=== PATIENT | male | born 1950 ===

== ENCOUNTER 2019-02-22 07:14 | Observation (INO) | payer OTHER ==
[2019-02-22 07:21] VITALS: BMI 25.0
[2019-02-22] MEDS ORDERED: Sodium Chloride 0.9% 1,000 ML IV STA (07:51)
--- NOTE | 2019-02-22 07:53 | C.PDOC ---
History Of Present Illness 68 y/o male pt with no PMHx presents to the ER c/o syncope x4 days ago. Pt reports he was going to the bathroom when he suddenly felt light headed and loss consciousness. Pt went to the PMD the same day but left without being seen due to the office being busy. Associated sx includes cough, body ache, chest congestion and subjective fever. Pt denies SOB, vomiting, back pain, neck pain, or prior history of syncope. Time Seen by Provider: 02/22/19 07:40 Chief Complaint (Nursing): Syncope History Per: Patient History/Exam Limitations: no limitations Onset/Duration Of Symptoms: Days (x4 days ago ) Activity At Onset Of Symptoms: Walking Associated Symptoms Preceding Syncopal Episode: Lightheadedness Past Medical History Reviewed: Historical Data, Nursing Documentation, Vital Signs Vital Signs: Last Vital Signs Temp 98.5 F 02/22/19 07:22 Pulse 91 H 02/22/19 07:22 Resp 16 02/22/19 07:22 BP 161/95 H 02/22/19 07:22 Pulse Ox 100 02/22/19 07:22 Family History: States: No Known Family Hx - Social History Hx Alcohol Use: No Hx Substance Use: No - Immunization History Hx Tetanus Toxoid Vaccination: No Hx Influenza Vaccination: No Hx Pneumococcal Vaccination: No Review Of Systems Except As Marked, All Systems Reviewed And Found Negative. Respiratory: Negative for: Shortness of Breath Gastrointestinal: Negative for: Vomiting Physical Exam - Physical Exam Additional Physical Exam Comments: Constitutional: No acute distress. Head: Normocephalic. Atraumatic. Eyes: PERRL. ENT: Moist mucous membranes. Neck: Supple. Cardiovascular: Regular rate. Radial pulse 2+ bilaterally. Chest: No tenderness. Respiratory: Clear to auscultation bilaterally. GI: Soft. Nontender. Nondistended. Back: No CVA tenderness. Musculoskeletal: No tenderness or swelling of extremities. Skin: No rash. Neurologic: Alert, no focal deficit. ED Course And Treatment - Laboratory Results Result Diagrams: 02/22/19 08:15 02/22/19 08:15 O2 Sat by Pulse Oximetry: 100 (RA) Pulse Ox Interpretation: Normal Medical Decision Making Medical Decision Making: Impression: 68 y/o male pt presents with syncope Plans: -- chem labs -- blood work -- CXR -- IV fluids -- Toradol EKG normal sinus: 80 bpm Large voltages, no ST elevations CXR IMPRESSION: Right middle lobe pneumonia. Follow-up after medical management is recommended to ensure complete resolution. The final report is tagged to the PA review folder. Patient initiated on antibiotics. Dr. Tomas accepts patient to hospitalist service. Disposition - Disposition Disposition: HOSPITALIZED Disposition Time: 10:47 Condition: FAIR Forms: [employer] (Lithuanian) - POA Core Measure Indicators: Pneumonia - Clinical Impression Clinical Impression: Syncope, Pneumonia - Scribe Statement The provider has reviewed the documentation as recorded by the Luis Manuel Monreal Do Provider Attestation: All medical record entries made by the Scribe were at my direction and personally dictated by me. I have reviewed the chart and agree that the record accurately reflects my personal performance of the history, physical exam, medical decision making, and the department course for this patient. I have also personally directed, reviewed, and agree with the discharge instructions and disposition.
[2019-02-22] MEDS ORDERED: Sodium Chloride 0.9% 1,000 ML ONE (08:02)
[2019-02-22 08:21] LABS: BASO % 0.3 % (0.0-2.0); EOS % 0.6 % (0.0-4.0); HEMOGLOBIN 11.2 g/dL (12.0-18.0); LYMPH # 1.4 K/uL (1.0-4.3); LYMPH % 18.1 % (20.0-40.0); MEAN CORPUSCULAR HEMOGLOBIN 29.5 pg (27.0-31.0); MEAN CORPUSCULAR HGB CONC 34.2 g/dL (33.0-37.0); MONO # 0.7 K/uL (0.0-0.8); MONO % 9.1 % (0.0-10.0); NEUT # 5.5 K/uL (1.8-7.0); NEUT % 71.9 % (50.0-75.0); RBC 3.81 Mil/uL (4.40-5.90); RED CELL DISTRIBUTION WIDTH 14.5 % (11.5-14.5); WHITE BLOOD COUNT 7.6 K/uL (4.8-10.8)
[2019-02-22 08:33] LABS: URINE BACTERIA RARE (<OCC); URINE BILIRUBIN NEGATIVE (NEGATIVE); URINE BLOOD NEGATIVE (NEGATIVE); URINE CLARITY Hazy (Clear); URINE COLOR Amber (YELLOW); URINE GLUCOSE (UA) NORMAL (Normal); URINE LEUKOCYTE ESTERASE NEG Leu/uL (Negative); URINE PROTEIN 2+ mg/dL (NEGATIVE)
[2019-02-22 08:36] LABS: ALB/GLOB RATIO 1.2 (1.0-2.1); ALBUMIN 4.1 g/dL (3.5-5.0); ALT/SGPT 41 U/L (21-72); AST/SGOT 56 U/L (17-59); BLOOD UREA NITROGEN 15 mg/dL (9-20); CALCIUM 9.1 mg/dl (8.6-10.4); GFR NON-AFRICAN AMERICAN > 60
[2019-02-22 08:46] LABS: CK-MB 0.47 ng/mL (0.0-3.38)
--- NOTE | 2019-02-22 10:39 | RAD ---
Date of service: 02/22/2019 HISTORY: Cough COMPARISON: No prior. TECHNIQUE: Chest PA and lateral FINDINGS: LINES AND TUBES: None. LUNG AND PLEURA: The lungs are well inflated. There is confluent airspace disease in the right middle lobe. No pleural effusion or pneumothorax. HEART AND MEDIASTINUM: The heart is not enlarged. No aortic atherosclerotic calcifications present. The hilar and mediastinal contours are within normal limits. SKELETAL STRUCTURES: The bony structures are within normal limits for the patient's age. VISUALIZED UPPER ABDOMEN: Normal. OTHER FINDINGS: None. IMPRESSION: Right middle lobe pneumonia. Follow-up after medical management is recommended to ensure complete resolution. The final report is tagged to the PA review folder.
[2019-02-22] MEDS ORDERED: Azithromycin 500 MG in Sodium Chloride 0.9% 250 ML IVPB STA (10:40)
[2019-02-22] MEDS ORDERED: Azithromycin 500mg/250ML NS 500 MG/250 ML BAG IVPB ONE (11:20)
[2019-02-22 11:33] VITALS: RESP 20
--- NOTE | 2019-02-22 13:54 | CP.PCM.HP ---
<Allison Simon P - Last Filed: 02/22/19 17:36> History of Present Illness - History of Present Illness History of Present Illness: H&P for Dr. Dee. HPI: 68 year old male with PMHx of HTN presents to ED complaining of cough with yellow sputum for one week. Patient also feels generalized weakness, subjective fever, chills, and body aches. Patient has not tried anything at home for the symptoms. Patient states he had a syncopal episode 4 days ago. He reportedly felt lightheaded as was urinating in the bathroom and fell backwards, hitting the back of his head on the ground. Patient states his nephew witnessed the episode and told him it lasted 2 minutes. Patient denies loss of bowel, convulsions, tongue biting and confusion afterward. Patient attempted to see his PMD later that day, however the wait was too long and he had to leave. Patient denies nausea, vomiting, diaphoresis, shortness of breath, room spinning sensation, headache, laceration, focal weakness, numbness and slurred speech. PMHx: HTN PSHx: none Meds: Norvasc 10mg QD, Losartan-HCTX 100-25mg QD- As per [facility] a 3 month supply for both medications were picked up on 11/2018, however patient states he only takes one of the medications and does not know the name Allergies: denies FamHx: denies SocHx: denies tobacco alcohol and illicit drugs, lives with his sister PMD: Dr. Gutierrez Proxy: Mustapha- nephew, contact info unknown to patient Review of Systems: -Gen: + fever, + chills, No headache, No lethargy, + weakness. -HEENT: No dizziness, No change in vision, No change in hearing, No sore throat, No dysphagia, No nasal congestion, No mucous. -Cardio: No chest pain, No palpitations, No lower extremity edema, No orthopnea. -Resp: + cough, No dyspnea, No hemoptysis, No wheezing, No pain on inspiration. -GI: No abdominal pain, No nausea/vomiting, No diarrhea/constipation, No hematochezia, No hematemesis. -: No dysuria, No urinary freq, No incontinence, No hematuria, No change in urinary stream. -MSK: No back pain, No muscle weakness, No radiating pain. -Skin: No itching, No rash, No lesions. -Neuro: + lightheadedness, No confusion, No numbness, No tingling, No focal weakness, No radicular pain, + syncope. -Psych: No anxiety, No depression, No H/I, No S/I, No hallucinations. Present on Admission - Present on Admission Any Indicators Present on Admission: No Past Patient History - Past Social History Smoking Status: Never Smoked - PSYCHIATRIC Hx Substance Use: No - SURGICAL HISTORY Hx Surgeries: No - ANESTHESIA Hx Anesthesia: No Meds Home Medications: Home Medication List Medication Instructions Recorded Confirmed Type Lactobacillus Acidophilus 1 cap PO BID #60 cap 02/23/19 Rx [Lactobacillus] Losartan/Hydrochlorothiazide 1 each PO DAILY #30 tablet 02/23/19 Rx [Losartan-Hctz 100-25 mg Tab] Moxifloxacin [Avelox] 400 mg PO DAILY #7 tab 02/23/19 Rx amLODIPine [Norvasc] 10 mg PO DAILY #30 tab 02/23/19 Rx Allergies/Adverse Reactions: Allergies Allergy/AdvReac Type Severity Reaction Status Date / Time No Known Allergies Allergy Verified 02/22/19 07:21 Physical Exam - Constitutional Appears: Non-toxic, No Acute Distress - Head Exam Head Exam: ATRAUMATIC, NORMOCEPHALIC Additional comments: No contusion, laceration or hematoma noted - Eye Exam Eye Exam: EOMI, Normal appearance, PERRL - ENT Exam ENT Exam: Mucous Membranes Moist, Normal Exam - Neck Exam Neck exam: Positive for: Full Rom, Normal Inspection. Negative for: Lymphadenopathy - Respiratory Exam Respiratory Exam: Clear to Auscultation Bilateral, NORMAL BREATHING PATTERN. absent: Accessory Muscle Use, Chest Wall Tenderness, Decreased Breath Sounds, Rales, Rhonchi, Wheezes, Respiratory Distress - Cardiovascular Exam Cardiovascular Exam: REGULAR RHYTHM, RRR, +S1, +S2. absent: JVD, Systolic Murm ur - GI/Abdominal Exam GI & Abdominal Exam: Normal Bowel Sounds, Soft. absent: Distended, Firm, Guarding, Rebound, Rigid, Tenderness - Extremities Exam Extremities exam: Positive for: full ROM, normal capillary refill, normal inspection, pedal pulses present. Negative for: calf tenderness, pedal edema, tenderness - Neurological Exam Neurological exam: Alert, CN II-XII Intact, Oriented x3 Additional comments: Muscle strength 5/5. Sensation intact. - Psychiatric Exam Psychiatric exam: Normal Affect, Normal Mood - Skin Skin Exam: Dry, Normal Color, Warm Results - Vital Signs Recent Vital Signs: Last Vital Signs Temp 98.3 F 02/22/19 11:40 Pulse 67 02/22/19 11:40 Resp 20 02/22/19 11:40 BP 173/93 H 02/22/19 11:40 Pulse Ox 97 02/22/19 11:40 - Labs Result Diagrams: 02/22/19 08:15 02/22/19 08:15 Labs: Laboratory Results - last 24 hr 02/22/19 02/22/19 02/22/19 08:15 08:15 08:15 WBC 7.6 RBC 3.81 L Hgb 11.2 L Hct 32.7 L MCV 86.0 MCH 29.5 MCHC 34.2 RDW 14.5 Plt Count 322 MPV 7.0 L Neut % (Auto) 71.9 Lymph % (Auto) 18.1 L Clark % (Auto) 9.1 Eos % (Auto) 0.6 Baso % (Auto) 0.3 Neut # (Auto) 5.5 Lymph # (Auto) 1.4 Clark # (Auto) 0.7 Eos # (Auto) 0.0 Baso # (Auto) 0.0 Sodium 136 Potassium 3.8 Chloride 101 Carbon Dioxide 25 Anion Gap 14 BUN 15 Creatinine 1.1 Est GFR ( Amer) > 60 Est GFR (Non-Af Amer) > 60 Random Glucose 121 H Calcium 9.1 Phosphorus 3.8 Magnesium 2.1 Total Bilirubin 0.9 AST 56 ALT 41 Alkaline Phosphatase 189 H Total Creatine Kinase 373 H CK-MB (Mass) 0.47 Troponin I 0.0120 Total Protein 7.5 Albumin 4.1 Globulin 3.4 Albumin/Globulin Ratio 1.2 Urine Color Urine Clarity Urine pH Ur Specific Kindred Urine Protein Urine Glucose (UA) Urine Ketones Urine Blood Urine Nitrate Urine Bilirubin Urine Urobilinogen Ur Leukocyte Esterase Urine WBC (Auto) Urine RBC (Auto) Urine Bacteria Influenza Typ A,B (EIA) Negative for flu a/b 02/22/19 08:15 WBC RBC Hgb Hct MCV MCH MCHC RDW Plt Count MPV Neut % (Auto) Lymph % (Auto) Clark % (Auto) Eos % (Auto) Baso % (Auto) Neut # (Auto) Lymph # (Auto) Clark # (Auto) Eos # (Auto) Baso # (Auto) Sodium Potassium Chloride Carbon Dioxide Anion Gap BUN Creatinine Est GFR ( Amer) Est GFR (Non-Af Amer) Random Glucose Calcium Phosphorus Magnesium Total Bilirubin AST ALT Alkaline Phosphatase Total Creatine Kinase CK-MB (Mass) Troponin I Total Protein Albumin Globulin Albumin/Globulin Ratio Urine Color Agnieszka Urine Clarity Hazy Urine pH 5.0 Ur Specific Kindred 1.029 Urine Protein 2+ H Urine Glucose (UA) Normal Urine Ketones Negative Urine Blood Negative Urine Nitrate Negative Urine Bilirubin Negative Urine Urobilinogen 4.0 Ur Leukocyte Esterase Neg Urine WBC (Auto) 4 Urine RBC (Auto) 1 Urine Bacteria Rare Influenza Typ A,B (EIA) Assessment & Plan - Assessment and Plan (Free Text) Plan: 68 year old male with PMHx of HTN admitted for PNA and syncope Right Middle Lobe Pneumonia CXR: RML PNA Azithromycin 500mg and ceftriaxone 1gm given in ED Azithromycin 250mg PO daily Ceftriaxone 1gm IVPB once daily Robitussin DM 10ml PO Q4H PRN Duoneb Q6H Acetaminophen 650mg PO Q6H PRN fever Flu negative F/u blood cx Syncopal episode with head trauma Likely vasovagal CT Head: No acute intracranial hemorrhage. 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 See full report. EKG: NSR @78bpm with voltage criteria for LVH Troponin negative x1 Hx of HTN Amlodipine 10mg PO daily Losartan 100mg PO daily HCTZ 25 mg PO dialy Monitor BP PPx Heparin 5000u SC Q8H SCDs GI ppx not indicated HHD Case discussed with Dr. uLiz Simon, PGY-1 <Jo Dee - Last Filed: 02/23/19 17:38> Results - Vital Signs Recent Vital Signs: Last Vital Signs Temp 97.2 F L 02/23/19 15:00 Pulse 81 02/23/19 15:00 Resp 20 02/23/19 15:00 BP 131/84 02/23/19 15:00 Pulse Ox 98 02/23/19 15:00 - Labs Result Diagrams: 02/23/19 07:00 02/23/19 07:00 Labs: Laboratory Results - last 24 hr 02/23/19 02/23/19 07:00 07:00 WBC 5.2 RBC 3.80 L Hgb 11.1 L Hct 32.6 L MCV 85.9 MCH 29.3 MCHC 34.1 RDW 14.7 H Plt Count 368 MPV 7.1 L Neut % (Auto) 61.1 Lymph % (Auto) 26.1 Clark % (Auto) 7.9 Eos % (Auto) 4.5 H Baso % (Auto) 0.4 Neut # (Auto) 3.2 Lymph # (Auto) 1.4 Clark # (Auto) 0.4 Eos # (Auto) 0.2 Baso # (Auto) 0.0 Sodium 135 Potassium 3.7 Chloride 100 Carbon Dioxide 26 Anion Gap 13 BUN 12 Creatinine 1.1 Est GFR ( Amer) > 60 Est GFR (Non-Af Amer) > 60 Random Glucose 105 Calcium 8.9 Total Bilirubin 0.5 AST 36 ALT 27 Alkaline Phosphatase 165 H Total Protein 7.0 Albumin 3.8 Globulin 3.2 Albumin/Globulin Ratio 1.2 Attending/Attestation - Attestation I have personally seen and examined this patient.: Yes I have fully participated in the care of the patient.: Yes I have reviewed all pertinent clinical information: Yes Notes (Text): seen and examined with the resident 1.syncope 2.Right middle lobe pneumonia Ct head shows chronic infarct ,we will continue ceftriaxone with zithromax Patient was asked to have a chest x ray after 4weeks of treatment
--- NOTE | 2019-02-22 16:13 | CT ---
Date of service: 02/22/2019 PROCEDURE: CT HEAD WITHOUT CONTRAST. HISTORY: Head trauma COMPARISON: Prior study available comparison. TECHNIQUE: Axial computed tomography images were obtained through the head/brain without intravenous contrast. Radiation dose: Total exam DLP = 1064.57 mGy-cm. This CT exam was performed using one or more of the following dose reduction techniques: Automated exposure control, adjustment of the mA and/or kV according to patient size, and/or use of iterative reconstruction technique. FINDINGS: HEMORRHAGE: No acute parenchymal, subarachnoid or extra-axial hemorrhage. BRAIN: Moderate chronic periventricular white matter ischemic changes seen extending peripherally into the deep and subcortical white matter both cerebral hemispheres. There are also scattered chronic bilateral basal nuclei lacunar type infarcts. Note that the possibility of a small hyperacute infarct cannot be excluded based on this exam. VENTRICLES: No obstructive hydrocephalus. CALVARIUM: Calvarium intact. PARANASAL SINUSES: Minimal mucosal thickening seen within a few ethmoid air cells. Old right sided nasal bone fracture deformity suspected. MASTOID AIR CELLS: Unremarkable as visualized. No inflammatory changes. OTHER FINDINGS: None. IMPRESSION: No acute intracranial hemorrhage. Moderate chronic white matter ischemic changes with multiple more discrete chronic appearing bilateral basal nuclei lacunar type infarcts. Note that the possibility of a small hyperacute infarct not excluded on this exam.
[2019-02-22] MEDS: guaiFENesin DM 200 mg-20 mg/10 ml UD PO PRN (21:02)
[2019-02-23] MEDS: Albuterol-Ipratrop 3 mg / 0.5 (3 ml) UD INH SCH ×3 (01:44→13:39)
[2019-02-23] MEDS: guaiFENesin DM 200 mg-20 mg/10 ml UD PO PRN ×2 (06:50→13:25)
[2019-02-23 07:17] LABS: BASO % 0.4 % (0.0-2.0); EOS # 0.2 K/uL (0.0-0.7); EOS % 4.5 % (0.0-4.0); HEMOGLOBIN 11.1 g/dL (12.0-18.0); LYMPH # 1.4 K/uL (1.0-4.3); LYMPH % 26.1 % (20.0-40.0); MEAN CELL VOLUME 85.9 fL (80.0-94.0); MEAN CORPUSCULAR HEMOGLOBIN 29.3 pg (27.0-31.0); MEAN CORPUSCULAR HGB CONC 34.1 g/dL (33.0-37.0); MEAN PLATELET VOLUME 7.1 fL (7.2-11.7); MONO # 0.4 K/uL (0.0-0.8); MONO % 7.9 % (0.0-10.0); NEUT # 3.2 K/uL (1.8-7.0); NEUT % 61.1 % (50.0-75.0); RBC 3.8 Mil/uL (4.40-5.90); RED CELL DISTRIBUTION WIDTH 14.7 % (11.5-14.5); WHITE BLOOD COUNT 5.2 K/uL (4.8-10.8)
[2019-02-23 07:39] LABS: ALB/GLOB RATIO 1.2 (1.0-2.1); ALBUMIN 3.8 g/dL (3.5-5.0); ALT/SGPT 27 U/L (21-72); AST/SGOT 36 U/L (17-59); BLOOD UREA NITROGEN 12 mg/dL (9-20); CALCIUM 8.9 mg/dl (8.6-10.4); GFR NON-AFRICAN AMERICAN > 60
[2019-02-23] MEDS ORDERED: Pneumococcal 23-Valent Vaccine IM ONE (14:00)
[2019-02-23] MEDS ORDERED: Pneumococcal 23-Valent Vaccine SC ONE (14:00)
--- NOTE | 2019-02-23 14:59 | CT ---
CT chest HISTORY: Pneumonia. COMPARISON: None available. Technique: Multiple contiguous axial images were performed through the chest without the use of intravenous contrast. Subsequently, sagittal and coronal reformatted images were obtained. This CT exam was performed using one or more of the following dose reduction techniques: Automated exposure control, adjustment of the mA and/or kV according to patient size, and/or use of iterative reconstruction technique. Findings: Right lung: Scattered emphysematous changes. Within the posterior aspect of the right upper lobe, there is a large ill-defined area of masslike consolidation measuring 5.4 x 2.8 x 4.3 centimeters. 4 millimeter intra fissural nodule and lymph node best seen on series 3, image 82 within the right fissure anteriorly. Dense focal masslike consolidation seen within the posterior medial aspect of the right middle lobe measuring 3.6 x 4.1 x 2.6 centimeters containing a few air bronchograms. Atelectatic changes within the right lobe posteriorly. Left lung: Scattered emphysematous changes. Apical pleural thickening. 1 millimeter nodule within the lingula. Atelectasis at the left lung base. Trachea thru central airways are patent. No significant axillary adenopathy. Thyroid gland is preserved. Atherosclerotic calcification and plaque within the aorta. Mild aneurysmal prominence of the aortic arch measuring 3.3 centimeters. Aneurysmal prominence of the ascending aorta measuring up to 3.7 centimeters. 1.3 centimeter precarinal lymph node. Limited evaluation for hilar adenopathy without contrast. No pleural or pericardial effusion. Prominent liver. Gallbladder is preserved. Degenerative changes in the spine. Impression: 1. Within the posterior aspect of the right upper lobe of the lung, there is a large ill-defined area of masslike consolidation measuring 5.4 x 2.8 x 4.3 centimeters. Additional dense focal masslike consolidation seen within the posterior medial aspect of the right middle lobe of the lung measuring 3.6 x 4.1 x 2.6 centimeters containing a few air bronchograms. These are of uncertain clinical etiology. These areas represent atypical infiltrative and or infectious changes. Additional etiologies cannot be excluded. Post treatment interval follow-up is recommended to ensure resolution and exclude underlying mass lesion. Clinical correlation. 2. 4 millimeter intra fissural nodule and lymph node best seen on series 3, image 82 within the right fissure anteriorly in the right lung. 3. 1 millimeter nodule within the lingula. 4. Atherosclerotic calcification and plaque within the aorta. Mild aneurysmal prominence of the aortic arch measuring 3.3 centimeters. Aneurysmal prominence of the ascending aorta measuring up to 3.7 centimeters. 5. 1.3 centimeter precarinal lymph node.
--- NOTE | 2019-02-23 15:25 | CP.PCM.PN ---
Subjective - Date & Time of Evaluation Date of Evaluation: 02/23/19 Time of Evaluation: 08:00 - Subjective Subjective: Progress note for Dr. Dee. Patient seen and examined at bedside. States he feels better. Still has a bit of a cough. Denies chest pain, nausea, vomiting, shortness of breath, lightheadedness, dizziness. Objective - Vital Signs/Intake and Output Vital Signs (last 24 hours): Temp Pulse Resp BP Pulse Ox 98.1 F 78 20 141/82 95 02/23/19 07:00 02/23/19 10:17 02/23/19 07:00 02/23/19 10:17 02/23/19 07:00 - Medications Medications: Current Medications Acetaminophen (Tylenol 325mg Tab) 650 mg PO Q6 PRN PRN Reason: Pain, moderate (4-7) Albuterol/Ipratropium (Duoneb 3 Mg/0.5 Mg (3 Ml) Ud) 3 ml INH RQ6 FILI Last Admin: 02/23/19 13:39 Dose: 3 ml Amlodipine Besylate (Norvasc) 10 mg PO DAILY [facility] Last Admin: 02/23/19 10:19 Dose: 10 mg Azithromycin (Zithromax) 250 mg PO DAILY [facility]; Protocol Stop: 02/26/19 12:00 Last Admin: 02/23/19 10:19 Dose: 250 mg Guaifenesin/Dextromethorphan (Robitussin Dm) 10 ml PO Q4H PRN PRN Reason: Cough and congestion Last Admin: 02/23/19 13:25 Dose: 10 ml Heparin Sodium (Porcine) (Heparin) 5,000 units SC Q8 [facility] Last Admin: 02/23/19 13:20 Dose: 5,000 units Hydrochlorothiazide (Hydrodiuril) 25 mg PO DAILY [facility] Last Admin: 02/23/19 10:19 Dose: 25 mg Ceftriaxone Sodium 1 gm/ (Sodium Chloride) 100 mls @ 100 mls/hr IVPB DAILY [facility]; Protocol Last Admin: 02/23/19 10:19 Dose: 100 mls/hr Losartan Potassium (Cozaar) 100 mg PO DAILY [facility] Last Admin: 02/23/19 10:19 Dose: 100 mg - Labs Labs: 02/23/19 07:00 02/23/19 07:00 - Additional Findings Additional findings: - Constitutional Appears: Non-toxic, No Acute Distress - Head Exam Head Exam: ATRAUMATIC, NORMOCEPHALIC Additional comments: No contusion, laceration or hematoma noted - Eye Exam Eye Exam: EOMI, Normal appearance, PERRL - ENT Exam ENT Exam: Mucous Membranes Moist, Normal Exam - Neck Exam Neck exam: Positive for: Full Rom, Normal Inspection. Negative for: Lymphadenopathy - Respiratory Exam Respiratory Exam: Clear to Auscultation Bilateral, NORMAL BREATHING PATTERN. absent: Accessory Muscle Use, Chest Wall Tenderness, Decreased Breath Sounds, Rales, Rhonchi, Wheezes, Respiratory Distress - Cardiovascular Exam Cardiovascular Exam: REGULAR RHYTHM, RRR, +S1, +S2. absent: JVD, Systolic Murmur - GI/Abdominal Exam GI & Abdominal Exam: Normal Bowel Sounds, Soft. absent: Distended, Firm, Guarding, Rebound, Rigid, Tenderness - Extremities Exam Extremities exam: Positive for: full ROM, normal capillary refill, normal inspection, pedal pulses present. Negative for: calf tenderness, pedal edema, tenderness - Neurological Exam Neurological exam: Alert, CN II-XII Intact, Oriented x3 Additional comments: Muscle strength 5/5. Sensation intact. - Psychiatric Exam Psychiatric exam: Normal Affect, Normal Mood - Skin Skin Exam: Dry, Normal Color, Warm
[2019-02-23 15:34] VITALS: BP 131/84; PULSE 81; TEMP 97.2; O2SAT 98
--- NOTE | 2019-02-23 15:35 | CP.PCM.DIS ---
Provider - Provider Date of Admission: 02/22/19 10:41 Attending physician: Santiago Tomas MD Consults: 02/23/19 15:17 Pulmonology Consult Routine Consulting Provider: Dale Flores Comment: Consulting Physician: Dale Flores Reason for Consult: mass like consolidations with lymph nodes on CT Time Spent in preparation of Discharge (in minutes): 35 Diagnosis - Discharge Diagnosis (1) Pneumonia Status: Acute (2) Syncope Status: Acute Hospital Course - Lab Results Lab Results: Micro Results 02/22/19 12:32 Blood-Venous Blood Culture - Preliminary NO GROWTH AFTER 24 HOURS 02/22/19 10:40 Blood-Venous Blood Culture - Preliminary NO GROWTH AFTER 24 HOURS 02/22/19 08:15 Urine Random Urine Culture - Final No Growth (<1,000 CFU/ML) Most Recent Lab Values WBC 5.2 K/uL (4.8-10.8) 02/23/19 07:00 RBC 3.80 Mil/uL (4.40-5.90) L 02/23/19 07:00 Hgb 11.1 g/dL (12.0-18.0) L 02/23/19 07:00 Hct 32.6 % (35.0-51.0) L 02/23/19 07:00 MCV 85.9 fL (80.0-94.0) 02/23/19 07:00 MCH 29.3 pg (27.0-31.0) 02/23/19 07:00 MCHC 34.1 g/dL (33.0-37.0) 02/23/19 07:00 RDW 14.7 % (11.5-14.5) H 02/23/19 07:00 Plt Count 368 K/uL (130-400) 02/23/19 07:00 MPV 7.1 fL (7.2-11.7) L 02/23/19 07:00 Neut % (Auto) 61.1 % (50.0-75.0) 02/23/19 07:00 Lymph % (Auto) 26.1 % (20.0-40.0) 02/23/19 07:00 [place] % (Auto) 7.9 % (0.0-10.0) 02/23/19 07:00 Eos % (Auto) 4.5 % (0.0-4.0) H 02/23/19 07:00 Baso % (Auto) 0.4 % (0.0-2.0) 02/23/19 07:00 Neut # (Auto) 3.2 K/uL (1.8-7.0) 02/23/19 07:00 Lymph # (Auto) 1.4 K/uL (1.0-4.3) 02/23/19 07:00 [place] # (Auto) 0.4 K/uL (0.0-0.8) 02/23/19 07:00 Eos # (Auto) 0.2 K/uL (0.0-0.7) 02/23/19 07:00 Baso # (Auto) 0.0 K/uL (0.0-0.2) 02/23/19 07:00 Sodium 135 mmol/L (132-148) 02/23/19 07:00 Potassium 3.7 mmol/L (3.6-5.2) 02/23/19 07:00 Chloride 100 mmol/L (98-107) 02/23/19 07:00 Carbon Dioxide 26 mmol/L (22-30) 02/23/19 07:00 Anion Gap 13 (10-20) 02/23/19 07:00 BUN 12 mg/dL (9-20) 02/23/19 07:00 Creatinine 1.1 mg/dL (0.8-1.5) 02/23/19 07:00 Est GFR ( Amer) > 60 02/23/19 07:00 Est GFR (Non-Af Amer) > 60 02/23/19 07:00 Random Glucose 105 mg/dL (75-110) 02/23/19 07:00 Calcium 8.9 mg/dl (8.6-10.4) 02/23/19 07:00 Phosphorus 3.8 mg/dL (2.5-4.5) 02/22/19 08:15 Magnesium 2.1 mg/dL (1.6-2.3) 02/22/19 08:15 Total Bilirubin 0.5 mg/dL (0.2-1.3) 02/23/19 07:00 AST 36 U/L (17-59) 02/23/19 07:00 ALT 27 U/L (21-72) 02/23/19 07:00 Alkaline Phosphatase 165 U/L (38-126) H 02/23/19 07:00 Total Creatine Kinase 373 U/L (55-170) H 02/22/19 08:15 CK-MB (Mass) 0.47 ng/mL (0.0-3.38) 02/22/19 08:15 Troponin I 0.0120 ng/mL (0.00-0.120) 02/22/19 08:15 Total Protein 7.0 g/dL (6.3-8.3) 02/23/19 07:00 Albumin 3.8 g/dL (3.5-5.0) 02/23/19 07:00 Globulin 3.2 gm/dL (2.2-3.9) 02/23/19 07:00 Albumin/Globulin Ratio 1.2 (1.0-2.1) 02/23/19 07:00 Urine Color Agnieszka (YELLOW) 02/22/19 08:15 Urine Clarity Hazy (Clear) 02/22/19 08:15 Urine pH 5.0 (5.0-8.0) 02/22/19 08:15 Ur Specific Steele 1.029 (1.003-1.030) 02/22/19 08:15 Urine Protein 2+ mg/dL (NEGATIVE) H 02/22/19 08:15 Urine Glucose (UA) Normal mg/dL (Normal) 02/22/19 08:15 Urine Ketones Negative mg/dL (NEGATIVE) 02/22/19 08:15 Urine Blood Negative (NEGATIVE) 02/22/19 08:15 Urine Nitrate Negative (NEGATIVE) 02/22/19 08:15 Urine Bilirubin Negative (NEGATIVE) 02/22/19 08:15 Urine Urobilinogen 4.0 mg/dL (0.2-1.0) 02/22/19 08:15 Ur Leukocyte Esterase Neg Markus/uL (Negative) 02/22/19 08:15 Urine WBC (Auto) 4 /hpf (0-5) 02/22/19 08:15 Urine RBC (Auto) 1 /hpf (0-3) 02/22/19 08:15 Urine Bacteria Rare (<OCC) 02/22/19 08:15 Influenza Typ A,B (EIA) Negative for flu a/b (NEGATIVE) 02/22/19 08:15 - Hospital Course Hospital Course: On admission: Hospital Course: 68 year old male with PMHx of HTN admitted for PNA and syncope Right Middle Lobe Pneumonia Patient was admitted for pneumonia and pneumonia. A CT head was obtained, which showed the following: No acute intracranial hemorrhage. 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 See full report. EKG: NSR @78bpm with voltage criteria for LVH Troponin negative x1 A Chest Xray showed RML PNA. Patient was given on Azithromycin 500mg and ceftriaxone 1gm given in ED Patient continued Azithromycin 250mg PO daily and Ceftriaxone 1gm IVPB once daily on the floor, as well as Robitussin DM 10ml PO Q4H PRN and Duoneb Q6H. Flu was negative and blood culture was neg x1 day. A CT chest was obtained which showed the followin. Within the posterior aspect of the right upper lobe of the lung, there is a large ill-defined area of masslike consolidation measuring 5.4 x 2.8 x 4.3 centimeters. Additional dense focal masslike consolidation seen within the posterior medial aspect of the right middle lobe of the lung measuring 3.6 x 4.1 x 2.6 centimeters containing a few air bronchograms. These are of uncertain clinical etiology. These areas represent atypical infiltrative and or infectious changes. Additional etiologies cannot be excluded. Post treatment interval follow-up is recommended to ensure resolution and exclude underlying mass lesion. Clinical correlation. 2. 4 millimeter intra fissural nodule and lymph node best seen on series 3, image 82 within the right fissure anteriorly in the right lung.3. 1 millimeter nodule within the lingula. 4. Atherosclerotic calcification and plaque within the aorta. Mild aneurysmal prominence of the aortic arch measuring 3.3 centimeters. Aneurysmal prominence of the ascending aorta measuring up to 3.7 centimeters. 5. 1.3 centimeter precarinal lymph node. Patient felt much better on day of discharge. On discharge: Patient is stable for discharge as per Dr. Dee. Patient is to follow up with his PMD. Dr. Gutierrez and have a repeat CT scan in 4-6 weeks. Patient is going home with the following prescriptions: Avelox 400mg once daily for 7 days Amlodipine 10mg once daily daily Losartan-HCTZ 100-25 once daily Lactobacillus 1 tap twice daily Return to emergency room for new or worsening symptoms. Discharge Exam - Additional Findings Additional findings: - Constitutional Appears: Non-toxic, No Acute Distress - Head Exam Head Exam: ATRAUMATIC, NORMOCEPHALIC Additional comments: No contusion, laceration or hematoma noted - Eye Exam Eye Exam: EOMI, Normal appearance, PERRL - ENT Exam ENT Exam: Mucous Membranes Moist, Normal Exam - Neck Exam Neck exam: Positive for: Full Rom, Normal Inspection. Negative for: Lymphadenopathy - Respiratory Exam Respiratory Exam: Clear to Auscultation Bilateral, NORMAL BREATHING PATTERN. absent: Accessory Muscle Use, Chest Wall Tenderness, Decreased Breath Sounds, Rales, Rhonchi, Wheezes, Respiratory Distress - Cardiovascular Exam Cardiovascular Exam: REGULAR RHYTHM, RRR, +S1, +S2. absent: JVD, Systolic Murmur - GI/Abdominal Exam GI & Abdominal Exam: Normal Bowel Sounds, Soft. absent: Distended, Firm, Guarding, Rebound, Rigid, Tenderness - Extremities Exam Extremities exam: Positive for: full ROM, normal capillary refill, normal inspection, pedal pulses present. Negative for: calf tenderness, pedal edema, tenderness - Neurological Exam Neurological exam: Alert, CN II-XII Intact, Oriented x3 Additional comments: Muscle strength 5/5. Sensation intact. - Psychiatric Exam Psychiatric exam: Normal Affect, Normal Mood - Skin Skin Exam: Dry, Normal Color, Warm Discharge Plan - Discharge Medications Prescriptions: amLODIPine [Norvasc] 10 mg PO DAILY #30 tab Lactobacillus Acidophilus [Lactobacillus] 1 cap PO BID #60 cap Losartan/Hydrochlorothiazide [Losartan-Hctz 100-25 mg Tab] 1 each PO DAILY #30 tablet Moxifloxacin [Avelox] 400 mg PO DAILY #7 tab - Follow Up Plan Condition: FAIR Disposition: HOME/ ROUTINE Instructions: Moxifloxacin (Systemic), Lactobacillus, Syncope (DC), Community Acquired Pneumonia (DC), Bacterial Pneumonia (DC), Syncope (GEN) Additional Instructions: Patient is stable for discharge as per Dr. Dee. Patient is to follow up with his PMD. Dr. Gutierrez and have a repeat CT scan in 4-6 weeks. Patient is going home with the following prescriptions: Avelox 400mg once daily for 7 days Amlodipine 10mg once daily daily Losartan-HCTZ 100-25 once daily Lactobacillus 1 tap twice daily Return to emergency room for new or worsening symptoms. El paciente se encuentra estable para el linn segn el Dr. Dee. El paciente debe seguir con castillo doctor de cabezera Dr. Gutierrez y se le repetir wan tomografa computarizada del pecho en 4-6 semanas. El paciente se va a casa con las siguientes recetas: Avelox 400 mg wan vez al da hermila 7 rizzo Amlodipina 10 mg wan vez al da diariamente. Losartan-HCTZ 100-25 wan vez al da Lactobacillus 1 toque dos veces al da Regrese a la tracey de emergencias para los sntomas nuevos o que empeoran.
[2019-02-25] MEDS ORDERED: Pneumococcal 23-Valent Vaccine IM ONE (10:00)
--- NOTE | 2019-02-26 15:51 | CARD ---
APPROVED REPORT Date of service: 02/22/2019 EKG Measurement Heart [id number] <Conclusion> Normal sinus rhythm Voltage criteria for left ventricular hypertrophy Abnormal ECG
== END 2019-02-23 16:30 | disposition home or self-care (01) ==
LOC: C.ER 07:14 → C.9E 10:41 → C.5S 11:17
PROVIDERS: ADMIT Family Medicine; ATTEND Internal Medicine
DX: J18.1 Lobar pneumonia, unspecified organism (principal); R55 Syncope and collapse; I10 Essential (primary) hypertension
CPT/HCPCS: 36415; 70450; 71046; 71250; 80053; 81001; 82550; 82553; 83735; 84100; 84484; 85025; 87040; 87086; 87804; 90471; 90732; 94640; 96361; 96365; 96366; 96367; 96372; 96375; 97161; 99285; G0378; G8978; G8979; G8980; J0456; J0696; J1644; J1885; J7030